=== PATIENT | female | born 1980 | race Caucasian/White ===

== ENCOUNTER 2017-10-23 18:35 | Emergency (ER) | payer MEDICAID ==
[~2017-10-23] VITALS: Ht 162.6 cm; Wt 56.7 kg
[2017-10-23 19:28] VITALS: Ht 162.6 cm; Wt 56.7 kg
[2017-10-23 21:23] VITALS: BP 123/78
== END 2017-10-23 21:23 | disposition home or self-care (01) ==
LOC: ED 18:35
DX: L25.9 Unspecified contact dermatitis, unspecified cause (principal)
CPT/HCPCS: J7512; Q0163